=== PATIENT | male | born 1980 | race Two or more races ===

== ENCOUNTER 2022-08-19 12:58 | Emergency (ER) | payer MEDICAID, OTHER ==
[~2022-08-19] VITALS: Ht 165.1 cm; Wt 65.8 kg
--- NOTE | 2022-08-19 13:10 | NUR ---
ON & OFF CHEST PAIN/HEADACHE AND PALPITATION X 5 DAYS
--- NOTE | 2022-08-19 13:30 | NUR ---
20G INSERTED AT LAC, BLD DRAWN, SENT [facility]NA LAB
--- NOTE | 2022-08-19 13:34 | NUR ---
URINE COLLECTED , SENT TO LAB.
--- NOTE | 2022-08-19 13:35 | NUR ---
DR ROUSE AT BEDSIDE FOR EVAL
[2022-08-19 13:43] LABS: BASOPHILS % (AUTO) 0.4 % (0.0-2.0); EOSINOPHILS % (AUTO) 1.1 % (0.0-6.0); HEMATOCRIT 48 % (39-51); HEMOGLOBIN 15.5 g/dL (13.5-17.5); LYMPHOCYTES # (AUTO) 2.1 K/uL (0.8-4.8); LYMPHOCYTES % (AUTO) 40.2 % (20.0-44.0); MEAN CORPUSCULAR HGB CONC 32 g/dl (31.0-36.0); MEAN CORPUSCULAR VOLUME 79 fL (80-96); MONOCYTES # (AUTO) 0.6 K/uL (0.1-1.30); MONOCYTES % (AUTO) 10.8 % (2.0-12.0); NEUTROPHILS # (AUTO) 2.4 K/uL (1.8-8.9); NEUTROPHILS % (AUTO) 47.5 % (43.0-81.0); PLATELET COUNT (AUTO) 259 K/uL (150-450); RED BLOOD CELL COUNT(AUTO) 6.12 MIL/uL (4.5-6.0); WHITE BLOOD COUNT (AUTO) 5.1 K/uL (4.3-11.0)
--- NOTE | 2022-08-19 13:45 | NUR ---
FOUNDRY MOLDER AT BEDSIDE FOR XRAY
[2022-08-19 13:58] LABS: CALCIUM, SERUM 9.9 mg/dL (8.5-10.1); CARBON DIOXIDE 29 mmol/L (21-32); CHLORIDE 105 mmol/L (98-107); CREATININE 0.8 mg/dL (0.6-1.3); GLUCOSE 94 mg/dL (74-106); POTASSIUM 4.1 mmol/L (3.5-5.1); SODIUM SERUM 140 mmol/L (136-145); UREA NITROGEN, BLOOD 14 mg/dL (7-18)
--- NOTE | 2022-08-19 16:50 | NUR ---
IV removed. Catheter intact and site benign. Pressure and 4x4 applied to site. No bleeding noted.Patient discharged to home in stable condition. Written and verbal after care instructions given. Patient verbalizes understanding of instruction.
[2022-08-19 16:51] VITALS: BP 119/88
== END 2022-08-19 16:51 | disposition home or self-care (01) ==
LOC: ER 13:01
DX: R07.89 Other chest pain (principal); R51.9 Headache, unspecified; J45.909 Unspecified asthma, uncomplicated; Z88.5 Allergy status to narcotic agent; Z60.2 Problems related to living alone
CPT/HCPCS: 36415; 71045-TC; 80048-TC; 83880; 84484-TC; 85025-TC; 85378-TC

== ENCOUNTER 2023-02-24 10:26 | Emergency (ER) | payer OTHER ==
[~2023-02-24] VITALS: Ht 165.1 cm; Wt 65.8 kg
[2023-02-24 11:50] VITALS: BP 124/88; TEMP 98.2; O2SAT 99
[2023-02-24] MEDS ORDERED: ACETAMINOPHEN 325 MG TABLET ONE (13:07)
[2023-02-24] MEDS ORDERED: IBUPROFEN 600 MG TABLET ONE (13:08)
[2023-02-24] MEDS: ACETAMINOPHEN 650 MG/20.3 ML UDC PO ONE (13:10)
[2023-02-24] MEDS: IBUPROFEN 600 MG TABLET PO ONE (13:10)
== END 2023-02-24 13:41 | disposition home or self-care (01) ==
LOC: ER 10:29
DX: M79.674 Pain in right toe(s) (principal); K21.9 Gastro-esophageal reflux disease without esophagitis; J45.909 Unspecified asthma, uncomplicated; Z88.5 Allergy status to narcotic agent; Z60.2 Problems related to living alone
CPT/HCPCS: 73630-TC

== ENCOUNTER 2024-12-25 09:27 | Emergency (ER) | payer OTHER ==
[~2024-12-25] VITALS: Ht 167.6 cm; Wt 65.8 kg
[2024-12-25 09:34] VITALS: BP 130/86; TEMP 97.7; O2SAT 96
== END 2024-12-25 11:26 | disposition home or self-care (01) ==
LOC: ER 09:27
DX: R09.81 Nasal congestion (principal); R09.82 Postnasal drip; J45.909 Unspecified asthma, uncomplicated; Z88.5 Allergy status to narcotic agent